=== PATIENT | male | born 1990 | race Caucasian/White ===

== ENCOUNTER → 2020-04-28 14:09 | Outpatient (CLI) | payer BC, SELFPAY ==
[2020-04-28 16:11] LABS: Add Manual Diff / Slide Review NO; Basophils Absolute Auto 0 /uL (0-100); Basophils Percent Auto 0.8 % (0-2); Eosinophils Absolute Auto 0 /uL (0-450); Eosinophils Percent Auto 0.2 % (2-4); Hemoglobin 15.8 g/dL (13.5-17.5); Lymphocytes Absolute Auto 1400 /uL (1100-4500); Lymphocytes Percent Auto 23.8 % (25-40); Mean Corpuscular HGB Conc 33.7 % (30-36); Mean Corpuscular Volume 83.2 fL (80-100); Monocytes Absolute Auto 400 /uL (0-900); Neutrophils Absolute Auto 3900 /uL (1500-7000); Neutrophils Percent Auto 68.2 % (50-75); Platelet Count 234 X10^3/uL (150-400); Red Blood Cell Count 5.64 X10^6/uL (4.5-5.9); Red Cell Distribution Width 13.4 % (11.6-14.8); White Blood Cell Count 5.8 X10^3/uL (4.5-11.0)
[2020-04-28 16:41] LABS: Alanine Aminotransferase 42 IU/L (<50); Albumin 4.9 g/dL (3.5-5.0); Albumin Globulin Ratio 1.8 (1.0-2.8); Alkaline Phosphatase 67 U/L (38-126); Aspartate Aminotransferase 34 IU/L (17-59); BUN Creatinine Ratio 16.1 (6-22); Bilirubin Total 0.6 mg/dL (0.2-1.3); Blood Urea Nitrogen 18 mg/dL (9-20); Carbon Dioxide 30 mmol/L (22-32); Chloride 101 mmol/L (98-107); Estimated Glomerular Filt Rate > 60.0 mL/min (>60); Globulin 2.8 g/dL (1.7-4.1); Glucose 85 mg/dL (70-100); HEMOLYSIS < 15 (0-50); Lipase 49 U/L (23-300); Potassium 4.2 mmol/L (3.4-5.1); Sodium 139 mmol/L (137-145); Total Protein 7.7 g/dL (6.3-8.2)
== END ==
PROVIDERS: Referring Provider Registered Nurse; Visit Provider Registered Nurse
DX: R10.9 Unspecified abdominal pain (principal)
CPT/HCPCS: 36415; 80053; 83690; 85025

== ENCOUNTER → 2020-05-08 14:12 | Outpatient (CLI) | payer BC, SELFPAY ==
--- NOTE | 2020-05-24 11:11 | PM.CARDMON.1 ---
Donor Center Technician Report Referral & Results Date Patient Seen: 05/08/20 Requesting provider: El Eastman Indication: Palpitations Duration of monitoring (days): 7 Diary information: There were 9 patient triggered events and 4 patient diary entries Patient triggered events were associated with (within 45 seconds) sinus rhythm and PACs Patient diary events were associated with sinus rhythm only Data: Minimum heart identified was 42 beats per minute at 02:20 on 05/09/2020 Maximum heart rate identified was 177 beats per minute at 13:43 on 05/09/2020 Less than 1% of identified beats or either ventricular supraventricular ectopic in origin Impression: Essentially normal 7 day diagnostic cardiac sonographer. Patient's sense of palpitations may be associated with PACs at times however patient also seemed to have a sense of palpitations with no identified dysrhythmia Clinical correlation suggested
== END ==
LOC: HOLT 14:12 → CAR 15:02
PROVIDERS: Referring Provider Registered Nurse; Visit Provider Registered Nurse
DX: R00.2 Palpitations (principal); I49.9 Cardiac arrhythmia, unspecified
CPT/HCPCS: 0296T; 0298T

== ENCOUNTER → 2020-05-09 07:29 | Outpatient (CLI) | payer BC, SELFPAY ==
--- NOTE | 2020-05-09 07:30 | DI.US.S_ITS ---
PROCEDURE: US ABDOMEN COMPLETE INDICATIONS: ABD PAIN TECHNIQUE: Real-time scanning was performed of the abdominal and retroperitoneal organs, with image documentation. COMPARISON: None. FINDINGS: Liver: Normal size. Increased in echogenicity. Gallbladder: Nondilated. No stones or sludge. Normal gallbladder wall thickness. No pericholecystic fluid. Negative sonographic Cook's sign. Biliary ducts: Intrahepatic bile ducts are non-dilated. Extrahepatic bile duct caliber measures 5 mm. Normal is 6-7 mm or less in diameter, or 10 mm or less post-cholecystectomy. Pancreas: Not seen. Spleen: Spleen is normal in size and homogeneous in echotexture. Measures 11 cm. Calcified granulomas are present. Kidneys: Kidneys are normal in size and echotexture. Right kidney measures 10.4 cm long; left kidney measures 11.6 cm long. No hydronephrosis. Echogenic foci in the left kidney with posterior acoustic shadowing. A larger calculus measuring at 5 mm. No solid masses. Aorta: Visualized aorta is normal in caliber at less than 3 cm. Iliacs: Not seen. IVC: Intrahepatic inferior vena cava is patent. Miscellaneous: No free abdominal fluid. IMPRESSION: Exam is somewhat limited due to acoustic windows. 1. No acute cholecystitis. No gallstones. 2. Increased hepatic echogenicity most consistent with hepatic steatosis. Other forms of hepatocellular disease could have similar appearance. 3. Small left kidney stones. No hydronephrosis demonstrated. Dictated by: Jamison Jordan M.D. on 05/09/2020 at 9:04 Approved by: Jamison Jordan M.D. on 05/09/2020 at 9:09
== END ==
PROVIDERS: PCP Registered Nurse; Referring Provider Registered Nurse; Visit Provider Registered Nurse
DX: R10.9 Unspecified abdominal pain (principal); N20.0 Calculus of kidney
CPT/HCPCS: 76700

== ENCOUNTER → 2021-04-12 16:36 | Outpatient (CLI) | payer BC, SELFPAY ==
--- NOTE | 2021-04-12 16:40 | DI.RAD.S_ITS ---
PROCEDURE: XR CHEST 2V INDICATIONS: Shortness of breath TECHNIQUE: 2 views of the chest were acquired. COMPARISON: None. FINDINGS: Surgical changes and devices: None. Lungs and pleura: Lungs are clear. No pleural effusions or pneumothorax. Mediastinum: Mediastinal contours are normal. Heart size is normal. Bones and chest wall: No suspicious bony abnormalities. Soft tissues appear unremarkable. IMPRESSION: Normal for age, source of current shortness of breath symptoms is not seen. Dictated by: Alexandro Encinas M.D. on 04/12/2021 at 17:13 Approved by: Alexandro Encinas M.D. on 04/12/2021 at 17:13
== END ==
PROVIDERS: PCP Internal Medicine; Referring Provider Internal Medicine; Visit Provider Internal Medicine
DX: R06.02 Shortness of breath (principal)
CPT/HCPCS: 71046

== ENCOUNTER → 2021-04-13 14:44 | Outpatient (CLI) | payer BC, SELFPAY ==
[2021-04-13 15:18] LABS: Mean Corpuscular Volume 81.9 fL (80-100); White Blood Cell Count 5.5 X10^3/uL (4.5-11.0)
[2021-04-13 15:27] LABS: Alanine Aminotransferase 30 IU/L (<50); Albumin 4.5 g/dL (3.5-5.0); Albumin Globulin Ratio 1.5 (1.0-2.8); Alkaline Phosphatase 69 U/L (38-126); Aspartate Aminotransferase 31 IU/L (17-59); BUN Creatinine Ratio 15.7 (6-22); Bilirubin Total 0.4 mg/dL (0.2-1.3); Bilirubin Unconjugated 0.2 mg/dL (0.0-1.1); Blood Urea Nitrogen 17 mg/dL (9-20); Carbon Dioxide 26 mmol/L (22-32); Chloride 107 mmol/L (98-107); Estimated Glomerular Filt Rate > 60.0 mL/min (>60); Globulin 3.1 g/dL (1.7-4.1); Glucose 95 mg/dL (70-100); HEMOLYSIS 29 (0-50); Potassium 3.9 mmol/L (3.4-5.1); Sodium 140 mmol/L (137-145); Total Protein 7.6 g/dL (6.3-8.2)
[2021-04-13 15:30] LABS: Add Manual Diff / Slide Review NO; Basophils Absolute Auto 0 /uL (0-100); Basophils Percent Auto 0.9 % (0-2); Eosinophils Absolute Auto 0 /uL (0-450); Eosinophils Percent Auto 0.6 % (2-4); Hematocrit 45.8 % (41-53); Hemoglobin 15.7 g/dL (13.5-17.5); Lymphocytes Absolute Auto 1300 /uL (1100-4500); Lymphocytes Percent Auto 24.3 % (25-40); Mean Corpuscular HGB Conc 34.2 % (30-36); Monocytes Absolute Auto 400 /uL (0-900); Monocytes Percent Auto 7.3 % (3-14); Neutrophils Absolute Auto 3700 /uL (1500-7000); Neutrophils Percent Auto 66.9 % (50-75); Platelet Count 211 X10^3/uL (150-400)
== END ==
PROVIDERS: PCP Internal Medicine; Referring Provider Physician Assistant; Visit Provider Physician Assistant
DX: L30.1 Dyshidrosis [pompholyx] (principal)
CPT/HCPCS: 36415; 80053; 80076; 85025

== ENCOUNTER → 2022-03-22 07:09 | Outpatient (CLI) | payer BC, SELFPAY ==
[2022-03-22 08:15] LABS: Cholesterol 195 mg/dL (140-199); HDL Cholesterol 39 mg/dL (40-60); LDL Cholesterol Calculated 114 mg/dL (<100); Triglycerides 211 mg/dL (35-150)
== END ==
PROVIDERS: PCP Internal Medicine; Referring Provider Internal Medicine; Visit Provider Internal Medicine
DX: Z13.220 Encounter for screening for lipoid disorders (principal); Z13.6 Encounter for screening for cardiovascular disorders
CPT/HCPCS: 36415; 80061

== ENCOUNTER → 2022-04-16 15:45 | Outpatient (CLI) | payer BC, SELFPAY ==
[2022-04-16 16:15] LABS: Add Manual Diff / Slide Review NO; Basophils Absolute Auto 100 /uL (0-100); Basophils Percent Auto 1.2 % (0-2); Eosinophils Absolute Auto 100 /uL (0-450); Eosinophils Percent Auto 1.4 % (2-4); Hematocrit 42.5 % (41-53); Hemoglobin 14.3 g/dL (13.5-17.5); Lymphocytes Absolute Auto 1600 /uL (1100-4500); Lymphocytes Percent Auto 32.4 % (25-40); Mean Corpuscular HGB Conc 33.7 % (30-36); Mean Corpuscular Hemoglobin 27.3 PG (26-34); Mean Corpuscular Volume 81.1 fL (80-100); Monocytes Absolute Auto 400 /uL (0-900); Monocytes Percent Auto 8.7 % (3-14); Neutrophils Absolute Auto 2900 /uL (1500-7000); Neutrophils Percent Auto 56.3 % (50-75); Platelet Count 233 X10^3/uL (150-400); Red Blood Cell Count 5.23 X10^6/uL (4.5-5.9); Red Cell Distribution Width 13.4 % (11.6-14.8); White Blood Cell Count 5.1 X10^3/uL (4.5-11.0)
[2022-04-16 16:33] LABS: Alanine Aminotransferase 56 IU/L (<50); Albumin 4.5 g/dL (3.5-5.0); Albumin Globulin Ratio 1.6 (1.0-2.8); Alkaline Phosphatase 63 U/L (38-126); Aspartate Aminotransferase 37 IU/L (17-59); Bilirubin Total 0.3 mg/dL (0.2-1.3); Blood Urea Nitrogen 16 mg/dL (9-20); Calcium 9.2 mg/dL (8.4-10.2); Carbon Dioxide 26 mmol/L (22-32); Chloride 103 mmol/L (98-107); Estimated Glomerular Filt Rate > 60 mL/min (>60); Globulin 2.8 g/dL (1.7-4.1); Glucose 97 mg/dL (70-100); HEMOLYSIS < 15 (0-50); Potassium 3.8 mmol/L (3.4-5.1); Sodium 140 mmol/L (137-145); Total Protein 7.3 g/dL (6.3-8.2)
[2022-04-16 16:38] LABS: Appearance Urine UA CLEAR; Bilirubin Urine UA NEGATIVE (NEGATIVE); Color Urine UA YELLOW; Glucose Urine UA NEGATIVE (Negative); Ketones Urine UA NEGATIVE (NEGATIVE); Leukocyte Esterase Urine UA NEGATIVE (NEGATIVE); Nitrite Urine UA NEGATIVE (Negative); Occult Blood Urine UA NEGATIVE (Negative); Protein Urine UA NEGATIVE (Negative); Specific Gravity Urine UA 1.015 (1.000-1.035); Urobilinogen Urine UA 0.2 E.U./dL (0.2)
[2022-04-16 16:50] LABS: Bacteria Urine None Seen; Culture Indicated Urine Cult Not Indicated; RBC Urine None Seen (0-5/HPF); Squamous Epithelial Cell Urine 0-1 /HPF (0-5/HPF); WBC Urine 0-1/HPF (0-5/HPF)
[2022-04-16 17:02] LABS: TSH w/ Reflex to FT4 2.81 uIU/mL (0.47-4.68)
== END ==
PROVIDERS: PCP Internal Medicine; Referring Provider Internal Medicine; Visit Provider Internal Medicine
DX: L30.9 Dermatitis, unspecified (principal); L56.8 Other specified acute skin changes due to ultraviolet radiation; R21 Rash and other nonspecific skin eruption; R35.89 Other polyuria
CPT/HCPCS: 36415; 80053; 81001; 84443; 85025

== ENCOUNTER → 2023-02-21 10:35 | Outpatient (CLI) | payer BC, SELFPAY ==
[2023-02-21 11:13] LABS: Appearance Urine UA CLEAR; Bilirubin Urine UA NEGATIVE (NEGATIVE); Color Urine UA YELLOW; Glucose Urine UA NEGATIVE (Negative); Ketones Urine UA NEGATIVE (NEGATIVE); Leukocyte Esterase Urine UA NEGATIVE (NEGATIVE); Nitrite Urine UA NEGATIVE (Negative); Occult Blood Urine UA NEGATIVE (Negative); Protein Urine UA NEGATIVE (Negative); Specific Gravity Urine UA <=1.005 (1.000-1.035); Urobilinogen Urine UA 0.2 E.U./dL (0.2); pH Urine UA 6.5 (4.5-8.0)
[2023-02-21 11:19] LABS: Add Manual Diff / Slide Review NO; Basophils Absolute Auto 0 /uL (0-100); Basophils Percent Auto 0.9 % (0-2); Eosinophils Absolute Auto 0 /uL (0-450); Eosinophils Percent Auto 0.7 % (2-4); Hematocrit 44.3 % (41-53); Hemoglobin 15.1 g/dL (13.5-17.5); Lymphocytes Absolute Auto 1300 /uL (1100-4500); Lymphocytes Percent Auto 30.9 % (25-40); Mean Corpuscular HGB Conc 34.1 % (30-36); Mean Corpuscular Hemoglobin 27.7 PG (26-34); Mean Corpuscular Volume 81.2 fL (80-100); Monocytes Absolute Auto 300 /uL (0-900); Monocytes Percent Auto 7.7 % (3-14); Neutrophils Absolute Auto 2600 /uL (1500-7000); Neutrophils Percent Auto 59.8 % (50-75); Platelet Count 233 X10^3/uL (150-400); Red Blood Cell Count 5.45 X10^6/uL (4.5-5.9); Red Cell Distribution Width 13.7 % (11.6-14.8); White Blood Cell Count 4.3 X10^3/uL (4.5-11.0)
[2023-02-21 11:24] LABS: Bacteria Urine None Seen; Culture Indicated Urine Cult Not Indicated; RBC Urine None Seen (0-5/HPF); Squamous Epithelial Cell Urine None Seen (0-5/HPF); Urine Comments Microscopic Normal; WBC Urine None Seen (0-5/HPF)
[2023-02-21 11:39] LABS: Alanine Aminotransferase 41 IU/L (<50); Albumin 4.7 g/dL (3.5-5.0); Albumin Globulin Ratio 1.4 (1.0-2.8); Alkaline Phosphatase 78 U/L (38-126); Aspartate Aminotransferase 29 IU/L (17-59); BUN Creatinine Ratio 12.1 (6-22); Bilirubin Total 0.5 mg/dL (0.2-1.3); Blood Urea Nitrogen 13 mg/dL (9-20); Calcium 9.4 mg/dL (8.4-10.2); Carbon Dioxide 30 mmol/L (22-32); Chloride 103 mmol/L (98-107); Estimated Glomerular Filt Rate > 60 mL/min (>60); Globulin 3.3 g/dL (1.7-4.1); Glucose 99 mg/dL (70-100); HEMOLYSIS < 15 (0-50); Sodium 140 mmol/L (137-145)
== END ==
PROVIDERS: PCP Internal Medicine; Referring Provider Internal Medicine; Visit Provider Internal Medicine
DX: K62.5 Hemorrhage of anus and rectum (principal); R35.89 Other polyuria
CPT/HCPCS: 36415; 80053; 81001; 85025

== ENCOUNTER → 2023-03-06 10:30 | Outpatient (CLI) | payer BC, SELFPAY ==
--- NOTE | 2023-03-06 10:32 | DI.RAD.S_ITS ---
PROCEDURE: XR THORACIC SPINE 3V INDICATIONS: Thoracic back pain TECHNIQUE: 3 views of the thoracic spine were acquired. COMPARISON: None. FINDINGS: Bones: No fractures or dislocations. No suspicious bony lesions. 12 pairs of ribs are noted, and appear intact where visualized. Soft tissues: No paravertebral stripe thickening. IMPRESSION: Normal thoracic spine radiographs Approved by: Cordell Montelongo M.D. on 03/06/2023 at 17:06
== END ==
PROVIDERS: PCP Internal Medicine; Referring Provider Nurse Practitioner Family; Visit Provider Nurse Practitioner Family
DX: M54.6 Pain in thoracic spine (principal)
CPT/HCPCS: 72072

== ENCOUNTER 2023-07-29 09:05 | Emergency (ER) | payer BC, SELFPAY ==
[2023-07-29] VITALS (8 sets, daily range): BP systolic 120–141; BP diastolic 83–90; PULSE 58–86; RESP 14–24; TEMP 36.8; O2SAT 95–99; BMI 29.2
--- NOTE | 2023-07-29 09:06 | DI.RAD.S_ITS ---
PROCEDURE: XR CHEST 1V INDICATIONS: chest pain TECHNIQUE: One view of the chest was acquired. COMPARISON: Merged With [facility], CR, XR CHEST 2V, 04/12/2021, 16:38. FINDINGS: Surgical changes and devices: None. Lungs and pleura: Lungs are clear. No pleural effusions or pneumothorax. Mediastinum: Mediastinal contours appear normal. Heart size is normal. Bones and chest wall: No suspicious bony lesions. Overlying soft tissues appear unremarkable. IMPRESSION: No acute pulmonary process. Dictated by: Delores Oglesby M.D. on 07/29/2023 at 9:51 Approved by: Delores Oglesby M.D. on 07/29/2023 at 9:51
--- NOTE | 2023-07-29 09:08 | ED.GENADULT ---
HPI - General Adult General Chief complaint: Arrhythmia/Palpitations Stated complaint: chest pain/racing heart/lighheaded Time Seen by Provider: 07/29/23 09:06 Source: patient Mode of arrival: Ambulatory Limitations: no limitations History of Present Illness HPI narrative: Patient is a 32-year-old male. Has a history of eczema. Received a Kenalog shot a couple days ago to try to help with the eczema. He has had issues with palpitations in the past. A couple years ago he had a Holter monitor. Showed PACs but otherwise unremarkable. He is here feeling anxious. Is having some chest discomfort. At the time of my evaluation was not feeling the palpitations but has had them off and on for the past couple days. No fevers. No problems breathing. He is a daily drinker however for 1 week out of every month he is ?on-call? and does not drink while he is on-call. He is currently during that on-call week. He is never withdrawn from alcohol in the past. Related Data Home Medications Medication Instructions Recorded Confirmed clobetasol 0.05 % topical ointment 1 applic topical DAILY PRN eczema 06/03/23 07/19/23 Previous Rx's Medication Instructions Recorded betamethasone dipropionate 0.05 % 1 applic topical BID PRN skin 07/19/23 topical ointment irritation 2 weeks #15 grams triamcinolone acetonide 0.5 % 1 applic topical TID #15 grams 07/21/23 topical cream Allergies Allergy/AdvReac Type Severity Reaction Status Date / Time amoxicillin Allergy Hives Verified 07/19/23 17:51 Review of Systems Constitutional Constitutional: Reports system reviewed and no additional complaints, except as documented Cardiovascular Cardiovascular: Reports system reviewed and no additional complaints, except as documented Respiratory Respiratory: Reports system reviewed and no additional complaints, except as documented Gastrointestinal Gastrointestinal: Reports system reviewed and no additional complaints, except as documented Integumentary/Breasts Skin/Breast: Reports system reviewed and no additional complaints, except as documented Psychiatric Psychiatric: Reports system reviewed and no additional complaints, except as documented Patient History Medical History COVID-19 Kidney stones Eczema Social History Smoking Status: Former smoker Smoking Status: Former smoker (States 2 months since quitting ~02/05/21) Exam Initial Vital Signs Initial Vital Signs: Vital Signs Pulse Rate 80 07/29/23 09:12 Respiratory Rate 24 07/29/23 09:12 Pulse Oximetry 99 07/29/23 09:12 Const General: cooperative, comfortable and No ill appearing Resp Effort & Inspection: normal respiratory effort Auscultation: clear to auscultation bilaterally Cardio Rate: regular rate Rhythm: regular rhythm Neuro General: patient alert, patient awake and moves all extremities Psych Other: Patient appears anxious and shaking. Course Orders Ordered: ED Orders 07/29/23 09:06 XR chest 1V Stat EKG-12 Lead Stat 07/29/23 09:30 Troponin & CK Cardiac Panel Stat 07/29/23 09:50 Basic Metabolic Panel Stat Complete Blood Count AUTO DIFF Stat Magnesium Stat Thyroid Stimulating Hormone Stat Discontinued Medications Lorazepam (Lorazepam 0.5 Mg Tablet) 1 mg PO NOW ONE Stop: 07/29/23 09:24 Last Admin: 07/29/23 09:27 Dose: 1 mg Documented By: KF Vital Signs Vital signs: Vital Signs - 8 hr 07/29/23 09:12 07/29/23 09:13 07/29/23 09:13 Temperature Pulse Rate 80 77 Respiratory Rate 24 14 Blood Pressure 141/84 H Pulse Oximetry 99 99 Oxygen Delivery Method 07/29/23 09:17 07/29/23 09:30 07/29/23 09:30 Temperature 98.2 F Pulse Rate 86 67 Respiratory Rate 18 22 Blood Pressure 141/84 H 129/83 Pulse Oximetry 98 97 Oxygen Delivery Method Room Air 07/29/23 10:00 07/29/23 10:00 07/29/23 10:30 Temperature Pulse Rate 58 L Respiratory Rate 20 Blood Pressure 127/89 127/84 Pulse Oximetry 98 Oxygen Delivery Method 07/29/23 10:30 Temperature Pulse Rate 60 Respiratory Rate 22 Blood Pressure Pulse Oximetry 95 Oxygen Delivery Method Medical Decision Making Medical Records Medical records reviewed: Yes I reviewed the patient's medical records. Lab Data Lab results reviewed: Yes I reviewed the patient's lab results. 07/29/23 09:50 07/29/23 09:50 Labs: Lab Results 07/29/23 07/29/23 Range/Units 09:30 09:50 WBC 5.1 (4.5-11.0) X10^3/uL RBC 5.51 (4.5-5.9) X10^6/uL Hgb 15.1 (13.5-17.5) g/dL Hct 44.9 (41-53) % MCV 81.5 (80-100) fL MCH 27.5 (26-34) PG MCHC 33.7 (30-36) % RDW 13.6 (11.6-14.8) % Plt Count 238 (150-400) X10^3/uL Neut % (Auto) 61.8 (50-75) % Lymph % (Auto) 29.6 (25-40) % Grand % (Auto) 7.1 (3-14) % Eos % (Auto) 0.5 L (2-4) % Baso % (Auto) 1.0 (0-2) % Neut # (Auto) 3100 (2390-3151) /uL Lymph # (Auto) 1500 (6827-4499) /uL Grand # (Auto) 400 (0-900) /uL Eos # (Auto) 0 (0-450) /uL Baso # (Auto) 0 (0-100) /uL Sodium 136 L (137-145) mmol/L Potassium 3.9 (3.4-5.1) mmol/L Chloride 101 (98-107) mmol/L Carbon Dioxide 26 (22-32) mmol/L BUN 16 (9-20) mg/dL Creatinine 1.02 (0.66-1.25) mg/dL Estimated GFR > 60 (>60) mL/min BUN/Creatinine Ratio 15.7 (6-22) Glucose 108 H (70-100) mg/dL Calcium 9.8 (8.4-10.2) mg/dL Magnesium 1.9 (1.6-2.3) mg/dL Total Creatine Kinase 103 (55-170) U/L Troponin I < 0.012 (0.01-0.034) ng/mL TSH 2.50 (0.47-4.68) uIU/mL Imaging Data Chest x-ray: Radiologist's Impression: PROCEDURE: XR CHEST 1V INDICATIONS: chest pain TECHNIQUE: One view of the chest was acquired. COMPARISON: [facility], CR, XR CHEST 2V, 04/12/2021, 16:38. FINDINGS: Surgical changes and devices: None. Lungs and pleura: Lungs are clear. No pleural effusions or pneumothorax. Mediastinum: Mediastinal contours appear normal. Heart size is normal. Bones and chest wall: No suspicious bony lesions. Overlying soft tissues appear unremarkable. IMPRESSION: No acute pulmonary process. ECG Data Attestation: I personally reviewed and interpreted this ECG as follows: Interpretation: Initial EKG was sinus rhythm with a rate of 89 however there was quite a bit of artifact noted. A repeat EKG showed sinus rhythm. Ventricular rate is 71 Normal QRS Normal QTC Sinus arrhythmia No ST T wave changes MDM Narrative Medical decision making narrative: Patient has had a normal rate and rhythm since being here in the emergency department. Was initially hypertensive but that improved with Ativan and time. His shakiness also improved with some Ativan. I did consider alcohol withdrawal though he is never had an issue with this in the past. He is no other signs of alcohol withdrawal. Electrolytes and kidney function and thyroid all unremarkable. EKGs unremarkable. Chest x-ray is unremarkable. Troponin is negative. Low suspicion for ACS. Will discharge patient home with instructions to contact his primary doctor for follow-up. He expressed understanding and agreement with plan. Discharge Plan Departure Patient Disposition: Home Clinical Impression: Palpitations Instructions: DI for Palpitations Activity Restrictions/Additional Instructions: Recommend that you continue to take all of your medications as directed. Contact your primary provider for follow-up. Return to the emergency department for new or worsening symptoms. Prescriptions: No Action betamethasone dipropionate 0.05 % ointment 1 applic topical BID MDD 50gram week PRN (Reason: skin irritation) 14 Days Qty: 15 0RF triamcinolone acetonide 0.5 % cream 1 applic topical TID Qty: 15 0RF clobetasol 0.05 % ointment 1 applic topical DAILY PRN (Reason: eczema) Referrals: Abilio Mccartney MD [Primary Care Provider] - Stand Alone Forms: Patient Portal/API
[2023-07-29] MEDS: LORazepam 0.5 MG TABLET 1 MG PO (09:27)
--- NOTE | 2023-07-29 09:36 | PC.NURSE ---
lab called, coming for blood draw
[2023-07-29 10:00] LABS: Add Manual Diff / Slide Review NO; Basophils Absolute Auto 0 /uL (0-100); Eosinophils Absolute Auto 0 /uL (0-450); Eosinophils Percent Auto 0.5 % (2-4); Hematocrit 44.9 % (41-53); Hemoglobin 15.1 g/dL (13.5-17.5); Lymphocytes Absolute Auto 1500 /uL (1100-4500); Lymphocytes Percent Auto 29.6 % (25-40); Mean Corpuscular HGB Conc 33.7 % (30-36); Mean Corpuscular Hemoglobin 27.5 PG (26-34); Mean Corpuscular Volume 81.5 fL (80-100); Monocytes Absolute Auto 400 /uL (0-900); Monocytes Percent Auto 7.1 % (3-14); Neutrophils Absolute Auto 3100 /uL (1500-7000); Neutrophils Percent Auto 61.8 % (50-75); Platelet Count 238 X10^3/uL (150-400); Red Blood Cell Count 5.51 X10^6/uL (4.5-5.9); Red Cell Distribution Width 13.6 % (11.6-14.8); White Blood Cell Count 5.1 X10^3/uL (4.5-11.0)
[2023-07-29 10:12] LABS: BUN Creatinine Ratio 15.7 (6-22); Blood Urea Nitrogen 16 mg/dL (9-20); Calcium 9.8 mg/dL (8.4-10.2); Carbon Dioxide 26 mmol/L (22-32); Chloride 101 mmol/L (98-107); Estimated Glomerular Filt Rate > 60 mL/min (>60); Glucose 108 mg/dL (70-100); HEMOLYSIS < 15 (0-50); Magnesium 1.9 mg/dL (1.6-2.3); Potassium 3.9 mmol/L (3.4-5.1); Sodium 136 mmol/L (137-145)
--- NOTE | 2023-07-29 10:21 | PC.NURSE ---
provider at bedside for re-eval
[2023-07-29 10:37] LABS: Creatine Kinase 103 U/L (55-170)
[2023-07-29 10:49] LABS: Troponin I < 0.012 ng/mL (0.01-0.034)
== END 2023-07-29 11:48 | disposition home or self-care (01) ==
PROVIDERS: Emergency Provider Emergency Medicine; PCP Internal Medicine
DX: R00.2 Palpitations (principal); R07.9 Chest pain, unspecified
CPT/HCPCS: 36415; 71045; 80048; 82550; 83735; 84443; 84484; 85025; 93005; 93010; 99283; 99284

== ENCOUNTER → 2024-01-23 13:09 | Outpatient (CLI) | payer BC, SELFPAY ==
--- NOTE | 2024-01-23 13:09 | DI.US.S_ITS ---
PROCEDURE: US SCROTUM INDICATIONS: scrotum pain, poss hydrocele TECHNIQUE: Real-time scanning was performed of the scrotum and testicles, with image documentation. Color and pulse Doppler interrogation was performed of both testicles. COMPARISON: None. FINDINGS: Right: Testicle is normal in size at 3.4 x 2.0 x 2.6 cm, and homogenous in echotexture. Epididymis is normal in overall size and morphology. No hydrocele or varicoceles. Overlying scrotal skin is normal in thickness. Left: Testicle is normal in size at 3.2 x 1.9 x 2.7 cm, and homogeneous in echotexture. Epididymis is normal in overall size and morphology. No hydrocele or varicoceles. Overlying scrotal skin is normal in thickness. Doppler: Color and pulse Doppler demonstrate normal and symmetric arterial flow in both testicles. IMPRESSION: Normal testicular ultrasound. No hydrocele. Dictated by: Corwin Upton M.D. on 01/23/2024 at 14:10 Approved by: Corwin Upton M.D. on 01/23/2024 at 14:13
== END ==
PROVIDERS: PCP Internal Medicine; Referring Provider Physician Assistant Medical; Visit Provider Physician Assistant Medical
DX: N50.82 Scrotal pain (principal)
CPT/HCPCS: 76870

== ENCOUNTER 2024-08-12 14:24 | Emergency (ER) | payer BC, SELFPAY ==
[2024-08-12 14:28] VITALS: BP 140/98; PULSE 67; RESP 14; TEMP 36.5; O2SAT 98; BMI 25.7
--- NOTE | 2024-08-12 14:40 | ED_ITS ---
HPI - Extremity Injury (Upper) <Raquel Garcia PA-C - Last Filed: 08/12/24 16:16> General Chief Complaint: Extremity Injury, Upper Stated Complaint: Sliced side of middle finger Time Seen by Provider: 08/12/24 14:39 Source: patient Mode of arrival: Ambulatory History of Present Illness HPI narrative: 33-year-old male presents with a left middle finger laceration. 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 He is right-handed dominant. He states his last tetanus was in 2014 from a dog bite. He is denying any numbness, tingling, loss of sensation or weakness. He controlled the bleeding with direct pressure. No other treatment tried. No other complaints. All other systems are reviewed and are negative. Related Data Home Medications Medication Instructions Recorded Confirmed clobetasol 0.05 % topical ointment 1 applic topical DAILY PRN eczema 06/03/23 01/23/24 dupilumab 300 mg/2 mL subcutaneous mg SUBCUT 01/23/24 01/23/24 pen injector ([employer]) Previous Rx's Medication Instructions Recorded triamcinolone acetonide 0.5 % 1 applic topical TID #15 grams 07/21/23 topical cream Allergies Allergy/AdvReac Type Severity Reaction Status Date / Time amoxicillin Allergy Hives Verified 07/19/23 17:51 kenalog AdvReac Severe Hypertensio Uncoded 01/23/24 12:38 n Review of Systems <Raquel Garcia PA-C - Last Filed: 08/12/24 16:16> Review of Systems Narrative: All other systems reviewed and are negative. Patient History <Raquel Garcia PA-C - Last Filed: 08/12/24 16:16> Medical History COVID-19 Kidney stones Eczema Social History Smoking Status: Former smoker Smoking Status: Former smoker alcohol intake frequency: 0-2 drinks per day Substance Use Type: does not use Exam <Raquel Garcia PA-C - Last Filed: 08/12/24 16:16> Initial Vital Signs Initial Vital Signs: Vital Signs Temperature 97.7 F 08/12/24 14:28 Pulse Rate 67 08/12/24 14:28 Respiratory Rate 14 08/12/24 14:28 Blood Pressure 140/98 H 08/12/24 14:28 Pulse Oximetry 98 08/12/24 14:28 Oxygen Delivery Method Room Air 08/12/24 14:28 Vital signs reviewed and are normal except for elevated blood pressure reading today. Const Other: Smiling, seated, no distress. Extrem Left upper extremity: hand (Left finger linear laceration on the radial aspect of the middle segment) Other: The largest laceration measures 2 cm, subcutaneous fat is seen otherwise the wound edges are well approximated. There is a parallel superficial laceration of the middle segment slightly smaller than 2 cm, both do not involve the joint lines. On the distal segment also on the radial side as a superficial laceration as well linear measuring 1.5 cm. Active flexion and extension are grossly intact. They are also intact against resistance isolating the PIP and DP joints. No tendon involvement. Distally has good capillary refill. Sensory is also grossly intact. <Magdy Nagy MD - Last Filed: 08/12/24 19:58> Initial Vital Signs Initial Vital Signs: Vital Signs Temperature 97.7 F 08/12/24 14:28 Pulse Rate 67 08/12/24 14:28 Respiratory Rate 14 08/12/24 14:28 Blood Pressure 140/98 H 08/12/24 14:28 Pulse Oximetry 98 08/12/24 14:28 Oxygen Delivery Method Room Air 08/12/24 14:28 Procedures <Raquel Garcia PA-C - Last Filed: 08/12/24 16:16> Laceration Repair Laceration 1: Time of procedure: 15:30 Site: upper extremity (left middle finger) Side (If applicable): left Size (cm): 2 Depth: simple, single layer Local Anesthetic: lidocaine 1% Amount of anesthesia used (mL): 4 (Digital nerve block was performed initially and then additional lidocaine was infiltrated directly into the wound.) Pre-repair: wound explored, irrigated extensively, deep structures intact and cleansed with chlorhexadine Skin layer closed with: nylon Skin layer suture size: 4-0 Number of sutures: 3 Technique: simple, interrupted Course <Raquel Garcia PA-C - Last Filed: 08/12/24 16:16> Orders Ordered: Discontinued Medications Lidocaine HCl (Lidocaine 1% 20 Ml) 20 ml INJ INTRA-OP ONE Stop: 08/12/24 14:55 Last Admin: 08/12/24 15:08 Dose: 20 ml Documented By: LILIANA Vital Signs Vital signs: Vital Signs - 8 hr 08/12/24 14:28 08/12/24 16:05 Temperature 97.7 F Pulse Rate 67 56 L Respiratory Rate 14 18 Blood Pressure 140/98 H 124/71 Pulse Oximetry 98 99 Oxygen Delivery Method Room Air <Magdy Nagy MD - Last Filed: 08/12/24 19:58> Orders Ordered: Discontinued Medications Lidocaine HCl (Lidocaine 1% 20 Ml) 20 ml INJ INTRA-OP ONE Stop: 08/12/24 14:55 Last Admin: 08/12/24 15:08 Dose: 20 ml Documented By: DKEliseo Vital Signs Vital signs: Vital Signs - 8 hr 08/12/24 14:28 08/12/24 16:05 Temperature 97.7 F Pulse Rate 67 56 L Respiratory Rate 14 18 Blood Pressure 140/98 H 124/71 Pulse Oximetry 98 99 Oxygen Delivery Method Room Air MDM - Extremity Injury (Upper) <Raquel Garcia PA-C - Last Filed: 08/12/24 16:16> MDM Narrative Medical decision making narrative: Linear laceration with no deeper structures involved, tendons are intact, full active range of motion, sensory intact to complication was that there were 2 parallel lacerations 1 that required suture closure and 1 that was superficial, it was closed within the suture itself because it had vital tissue in between the 2 lacerations. No evidence of any arterial bleeding, clear no pulsatile findings. He tolerated the procedure well. The distal laceration was superficial similar to a paper cut that was closed with Steri-Strips after was copiously irrigated. We discussed wound care, he will keep the tube gauze dressing on for the next 48 hours and keep it dry, elevate as much as possible, [id number] pain relievers of choice, he may take down the dressing in 2 days time, gentle cleanse, do not do any water submersion, monitor for signs of infection including increased redness, swelling, drainage, pain, any warmth to the area, discussed possibility of rebleeding he would need to elevate and apply direct pressure and seek medical attention. Sutures should be removed in 5-7 days, I reminded him of our walk-in clinic that is available 7 days a week but he is more than welcome to return here or see his PCP. Red flag warning signs were reviewed in detail. Discharge Plan Departure Patient Disposition: Home Clinical Impression: Finger laceration Qualifiers: Encounter type: initial encounter Finger: middle finger Damage to nail status: without damage Foreign body presence: without foreign body Laterality: left Qualified Code(s): S61.213A - Laceration without foreign body of left middle finger without damage to nail, initial encounter Instructions: DI for Laceration Repair -- Finger Activity Restrictions/Additional Instructions: Please keep the current dressing on for the next 48 hours. Keep your finger elevated throughout the day. Keep it dry. Cover with a plastic bag as needed. Limited use of the finger, avoid flexing, bending. After 48 hours you may take down this dressing in inspect the laceration. You can do a gentle cleanse but do not submerge in water or do dishes etcetera. Cover with a regular bandage, monitor for any signs of infection this would include increased swelling, redness, pain, drainage, if you have any bleeding through the current dressing please apply direct pressure and seek medical attention. Avoid re-injury. Sutures should come out in 5-7 days. We do have a walk-in clinic available 7 days a week no appointment is required or you may return to the emergency department or see your PCP. Your tetanus was within 10 year timeframe please update at the 10 year carrol. Prescriptions: No Action Dupixent Pen 300 mg/2 mL pen injector SUBCUT Patient Comments: [NO ORIGINAL SIG] triamcinolone acetonide 0.5 % cream 1 applic topical TID Qty: 15 0RF clobetasol 0.05 % ointment 1 applic topical DAILY PRN (Reason: eczema) Referrals: Abilio Mccartney MD [Primary Care Provider] - Stand Alone Forms: Patient Portal/API/Survey ED Sign-out <Magdy Nagy MD - Last Filed: 08/12/24 19:58> Cosign ED Attending Lea Attestation: I was immediately available in the department for consultation. This documentation has been reviewed and I agree with assessment and plan. Supervised by Magdy Nagy MD
[2024-08-12] MEDS: LIDOCAINE 1% 20 ML INJ (15:08)
[2024-08-12 16:05] VITALS: BP 124/71; PULSE 56; RESP 18; O2SAT 99
== END 2024-08-12 16:19 | disposition home or self-care (01) ==
PROVIDERS: Emergency Provider Physician Assistant Medical; PCP Internal Medicine
DX: S61.213A Laceration without foreign body of left middle finger without damage to nail, initial encounter (principal); W26.0XXA Contact with knife, initial encounter
CPT/HCPCS: 12001; 64450; 99283

== ENCOUNTER → 2025-03-31 10:33 | Outpatient (CLI) | payer BC, SELFPAY ==
[2025-03-31 11:57] LABS: Add Manual Diff / Slide Review NO; Hematocrit 47.2 % (41-53); Hemoglobin 15.8 g/dL (13.5-17.5); Lymphocytes Absolute Auto 1100 /uL (1100-4500); Mean Corpuscular HGB Conc 33.5 % (30-36); Mean Corpuscular Hemoglobin 27.8 PG (26-34); Mean Corpuscular Volume 82.9 fL (80-100); Platelet Count 221 X10^3/uL (150-400)
== END ==
PROVIDERS: PCP Internal Medicine
DX: L50.1 Idiopathic urticaria (principal)
CPT/HCPCS: 36415; 85025; 85651; 86038; 86376; 86800

== ENCOUNTER 2025-09-10 15:37 | Emergency (ER) | payer BC, SELFPAY ==
[2025-09-10] VITALS (9 sets, daily range): BP systolic 106–126; BP diastolic 59–88; PULSE 52–71; RESP 16–18; TEMP 36.9; O2SAT 98–100; BMI 24.4
[2025-09-10 16:13] LABS: Add Manual Diff / Slide Review NO; Hematocrit 47.4 % (41-53); Hemoglobin 16.1 g/dL (13.5-17.5); Lymphocytes Absolute Auto 1100 /uL (1100-4500); Mean Corpuscular HGB Conc 34.0 % (30-36); Mean Corpuscular Hemoglobin 27.5 PG (26-34); Mean Corpuscular Volume 80.8 fL (80-100); Platelet Count 212 X10^3/uL (150-400)
[2025-09-10 16:19] LABS: INR 1.0 (0.9-1.3); Prothrombin Time 11.6 SECONDS (9.4-12.5)
[2025-09-10 16:21] LABS: PTT Partial Thromboplastin Tim 28 SECONDS (25.1-36.5)
[2025-09-10 16:23] LABS: Alanine Aminotransferase 27 IU/L (<50); Albumin 4.8 g/dL (3.5-5.0); Albumin Globulin Ratio 1.7 (1.0-2.8); Alkaline Phosphatase 64 U/L (38-126); Blood Urea Nitrogen 17 mg/dL (9-20); Calcium 9.6 mg/dL (8.4-10.2); Carbon Dioxide 29 mmol/L (22-32); Chloride 105 mmol/L (98-107); Estimated Glomerular Filt Rate > 60 mL/min (>60); Globulin 2.9 g/dL (1.7-4.1); Glucose 101 mg/dL (70-99); HEMOLYSIS < 15 (0-50); Lipase 50 U/L (23-300); Potassium 4.1 mmol/L (3.4-5.1); Sodium 142 mmol/L (137-145); Total Protein 7.7 g/dL (6.3-8.2)
--- NOTE | 2025-09-10 18:07 | ED_ITS ---
HPI - GI Bleed General Chief complaint: GI Bleed Stated complaint: Blood in stool, lower back pain, diarrhea Time Seen by Provider: 09/10/25 16:19 Source: patient Mode of arrival: Ambulatory History of Present Illness HPI Narrative: 34-year-old male reports history of hemorrhoids, household members with recent diarrheal illness daughter and last few days, patient initially 4 days ago also had clear watery diarrhea, then 3 days ago had some blood component, yesterday having some clot, some right lower back pain. No injury or trauma. No blood thinner medications taken. Recent antibiotics. No fevers or chills. No painful or frequent urination. Household members did not have any GI bleeding like symptoms, only clear watery stools that have resolved without specific treatment. Related Data Home Medications ?Medication ?Instructions ?Recorded ?Confirmed clobetasol 0.05 % topical ointment 1 applic topical DA FABI PRN eczema 06/03/23 01/23/24 dupilumab 300 mg/2 mL subcutaneous mg SUBCUT 01/23/24 01/23/24 pen injector ([employer]) Previous Rx's ?Medication ?Instructions ?Recorded triamcinolone acetonide 0.5 % 1 applic topical TID #15 grams 07/21/23 topical cream Allergies Allergy/AdvReac Type Severity Reaction Status Date / Time amoxicillin Allergy Hives Verified 07/19/23 17:51 kenalog AdvReac Severe Hypertensio Uncoded 01/23/24 12:38 n Patient History Medical History COVID-19 Kidney stones Eczema Social History Smoking Status: Former smoker Smoking Status: Former smoker alcohol intake frequency: 0-2 drinks per day Exam Narrative Exam Narrative: GENERAL: Well-developed patient, in mild distress. HEAD: Atraumatic. Normocephalic. EYES: Pupils equal round and reactive. Extraocular motions intact. No scleral icterus. No injection or drainage. ENT: White sclerae, no obvious facial trauma or swelling. NECK: Trachea midline. Non tender CARDIOVASCULAR: Regular rate and rhythm without murmurs, gallops, or rubs. RESPIRATORY: Clear to auscultation. Breath sounds equal bilaterally. No wheezes, rales, or rhonchi. GASTROINTESTINAL: Abdomen soft, non-tender, nondistended. EXTREMITIES: No edema or joint tenderness. BACK: Nontender without deformity or crepitance. No flank tenderness. NEURO: AOx3. Motor functions grossly nonfocal. SKIN: No rash or erythema of visible areas Initial Vital Signs Initial Vital Signs: Vital Signs Temperature 98.4 F 09/10/25 15:48 Pulse Rate 59 L 09/10/25 15:48 Respiratory Rate 18 09/10/25 15:48 Blood Pressure 126/78 09/10/25 15:48 Pulse Oximetry 99 09/10/25 15:48 Oxygen Delivery Method Room Air 09/10/25 15:48 Course Orders Ordered: ED Orders 09/10/25 18:09 CT angio Abd/Pel GI Bleed Stat Discontinued Medications Sodium Chloride (Normal Saline 0.9%) 1,000 mls @ 1,000 mls/hr IV BOLUS ONE Stop: 09/10/25 19:08 Last Infusion: 09/10/25 19:11 Dose: Infused Documented By: Admin: 09/10/25 18:22 Dose: 1,000 mls/hr Documented By: REKHA Ondansetron HCl (Ondansetron 4 Mg/2 Ml Inj) 4 mg IV NOW PRN PRN Reason: Nausea And Vomiting Ondansetron HCl (Ondansetron 4 Mg Odt) 4 mg PO NOW PRN PRN Reason: Nausea And Vomiting Vital Signs Vital signs: Vital Signs - 8 hr 09/10/25 18:33 09/10/25 18:34 09/10/25 18:34 Pulse Rate 58 L 63 Respiratory Rate 16 Blood Pressure 118/77 Pulse Oximetry 100 99 Oxygen Delivery Method Room Air 09/10/25 19:00 09/10/25 19:00 09/10/25 19:30 Pulse Rate 57 L Respiratory Rate Blood Pressure 106/59 L 109/76 Pulse Oximetry 99 Oxygen Delivery Method 09/10/25 19:30 Pulse Rate 71 Respiratory Rate 18 Blood Pressure Pulse Oximetry 99 Oxygen Delivery Method Room Air MDM - GI Bleed Lab Data Attestation: I reviewed the patient's lab results. Lab results narrative: White blood cell count 4000, hemoglobin 16.1, platelets adequate. Glucose 101. Normal renal function, serum CO2, electrolytes. Normal INR 1.0 noted. Liver functions and lipase normal. 09/10/25 16:05 09/10/25 16:05 Labs: Lab Results 09/10/25 Range/Units 16:05 WBC 4.0 L (4.5-11.0) X10^3/uL RBC 5.86 (4.5-5.9) X10^6/uL Hgb 16.1 (13.5-17.5) g/dL Hct 47.4 (41-53) % MCV 80.8 (80-100) fL MCH 27.5 (26-34) PG MCHC 34.0 (30-36) % RDW 13.6 (11.6-14.8) % Plt Count 212 (150-400) X10^3/uL Neut % (Auto) 64.0 (50-75) % Lymph % (Auto) 26.4 (25-40) % Casey % (Auto) 7.8 (3-14) % Eos % (Auto) 0.9 L (2-4) % Baso % (Auto) 0.9 (0-2) % Neut # (Auto) 2600 (0253-1871) /uL Lymph # (Auto) 1100 (5171-1053) /uL Casey # (Auto) 300 (0-900) /uL Eos # (Auto) 0 (0-450) /uL Baso # (Auto) 0 (0-100) /uL PT 11.6 (9.4-12.5) SECONDS INR 1.0 (0.9-1.3) APTT 28 (25.1-36.5) SECONDS Sodium 142 (137-145) mmol/L Potassium 4.1 (3.4-5.1) mmol/L Chloride 105 (98-107) mmol/L Carbon Dioxide 29 (22-32) mmol/L BUN 17 (9-20) mg/dL Creatinine 1.08 (0.66-1.25) mg/dL Estimated GFR > 60 (>60) mL/min BUN/Creatinine Ratio 15.7 (6-22) Glucose 101 H (70-99) mg/dL Calcium 9.6 (8.4-10.2) mg/dL Total Bilirubin 0.7 (0.2-1.3) mg/dL AST 26 (17-59) IU/L ALT 27 (<50) IU/L Alkaline Phosphatase 64 (38-126) U/L Total Protein 7.7 (6.3-8.2) g/dL Albumin 4.8 (3.5-5.0) g/dL Globulin 2.9 (1.7-4.1) g/dL Albumin/Globulin Ratio 1.7 (1.0-2.8) Lipase 50 (23-300) U/L Urine Dip Bedside Urine Glucose Negative Bedside Urine Bilirubin - Negative Bedside Urine Ketone - Negative Urine Specific [place] 1.015 Bedside Urine Occult Blood - Negative Bedside Urine pH 6.0 Bedside Urine Protein - Negative Bedside Urine Urobilinogen - Negative Bedside Urine Nitrite - Negative Bedside Urine Leukocytes - Negative Esterase Imaging Data CTA abdomen and pelvis GI bleed protocol: Radiologist's Impression: [address] [address] [address] Scan Report Signed Patient: Omar Olmedo MR#: [id number] : 1990 Acct:[id number] Age/Sex: 34 / M Date of Service: 09/10/25 Loc: ED Accession Number: [id number] Procedure: CT angio Abd/Pel GI Bleed Ordering Provider: Magdy Nagy MD PROCEDURE: CT ANGIO ABD/PEL GI BLEED INDICATIONS: GIB protocol TECHNIQUE: After the administration of intravenous contrast, 2.5 mm sections acquired from the diaphragm to the iliac crests. 10 mm maximum intensity projection (MIP) coronal and sagittal reformats were then performed. For radiation dose reduction, the following was used: automated exposure control. COMPARISON: None. FINDINGS: Image quality: Diagnostic. Abdominal aorta: No aortic aneurysm or evidence of acute aortic syndrome. Mesenteric arteries: Patent without hemodynamically significant stenosis. Renal arteries: Patent without hemodynamically significant stenosis. Lower chest: Unremarkable. ABDOMEN: Liver: Scattered subcentimeter hypoattenuating lesions, too small to characterize by CT but probably small cysts. Gallbladder: No radiopaque gallstones or wall thickening. Biliary ducts: No biliary dilation. Pancreas: No ductal dilation. Spleen: Size is within normal limits. Adrenal Glands: No adrenal nodules. Kidneys and Ureters: No hydronephrosis. No solid mass. No complex renal cystic lesion which requires follow up. Stomach and Bowel: Normal colonic caliber, without significant wall thickening. Peritoneum: No abnormal intraperitoneal fluid. No free air. Ventral Wall: No hernia. Abdominal Nodes: No retroperitoneal or mesenteric adenopathy by size criteria. Vessels: Aorta, as above. Normal IVC. PELVIS: Pelvic Organs: Unremarkable. Bladder: Unremarkable. Pelvic Nodes: No enlarged lymph nodes. Miscellaneous: No inguinal hernias are seen. Bones: No aggressive osseous abnormality. IMPRESSION: No evidence of active GI hemorrhage or colitis. Dictated by: Corwin Upton M.D. on 09/10/2025 at 17:46 Approved by: Corwin Upton M.D. on 09/10/2025 at 17:50 [facility] Narrative Medical decision making narrative: 34-year-old male with family members having loose stools, he has had loose stools initially, then blood streaked mixed with stool, history of hemorrhoids. Afebrile, sirs screen negative. Abdominal exam benign. Lab data: White blood cell count 4000, hemoglobin 16.1, platelets adequate. Glucose 101. Normal renal function, serum CO2, electrolytes. Normal INR 1.0 noted. Liver functions and lipase normal. CTA abdomen and pelvis GI bleeding protocol. Showed no acute hemorrhage, also showed no colitis or diverticulitis or acute changes. See radiology report. We discussed digital rectal exam, declined. It is possible patient has diarrheal illness along with family members but more severe, no specimen stool obtained while in the emergency department for testing and lab, possible bleeding related to hemorrhoids, possible other cause of bleeding, consider lower endoscopy evaluation as outpatient. Consider GI consultation. Given contact information for local general surgery clinic. Might need referral from PCP. Discharged home with family. Return precautions discussed. Discharge Plan Departure Patient Disposition: Home Clinical Impression: Rectal bleeding Activity Restrictions/Additional Instructions: Rectal bleeding, reported history of hemorrhoids. There was some description of some blood mixed with stool. Fever on triage. No significant tenderness on examination. Screening labs unremarkable, normal hemoglobin level, no anemia, no clotting problems, normal platelets. CT abdomen and pelvis GI bleeding protocol showed no hemorrhage sources, also no colitis or diverticulitis or acute inflammatory processes. You had recent diarrhea and then GI bleeding like symptoms, then subsequently your family members had diarrheal symptoms that seemed to resolve and did not have bleeding associated. It is theoretically possible you have an acute infectious process that is likely self-limited, that might have been the cause of your GI bleeding. You might have irritation to hemorrhoids causing localized bleeding. However you might have some other reason for GI bleeding that might be discovered on colonoscopy, consider Gastroenterology consultation. You might need referral from your regular doctor. There was no drupal web developer on staff at [facility] at this time. There are general surgeons who performed upper and lower endoscopies, we will give contact information for Dr. Medellin in clinic surgery. Though you might prefer drupal web developer specialty consultation elsewhere. Contact your regular doctor for referrals above. Return earlier to this/nearest emergency department for any change worsening symptoms or concerns prior. Prescriptions: No Action Dupixent Pen 300 mg/2 mL pen injector SUBCUT Patient Comments: [NO ORIGINAL SIG] triamcinolone acetonide 0.5 % cream 1 applic topical TID Qty: 15 0RF clobetasol 0.05 % ointment 1 applic topical DAILY PRN (Reason: eczema) Referrals: Abilio Mccartney MD [Primary Care Provider, Internal Medicine] Mohamud Medellin MD [Physician, General Surgery] Stand Alone Forms: Patient Portal/API
[2025-09-10] MEDS: SODIUM CHLORIDE 0.9% 1,000 ML 1000 ML IV (18:22)
== END 2025-09-10 19:53 | disposition home or self-care (01) ==
PROVIDERS: Family Medicine; Emergency Provider Emergency Medicine; PCP Internal Medicine
DX: K62.5 Hemorrhage of anus and rectum (principal); M54.50 Low back pain, unspecified; R19.7 Diarrhea, unspecified
CPT/HCPCS: 36415; 74174; 80053; 81003; 83690; 85025; 85610; 85730; 96360; 99284; J7030; Q9967